=== PATIENT | male | born 1985 | race African-American/Black ===

== ENCOUNTER 2017-04-19 07:59 | Emergency (ER) | payer SELFPAY ==
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
== END 2017-04-19 10:00 | disposition home or self-care (01) ==
LOC: CED 07:59
DX: S00.93XA Contusion of unspecified part of head, initial encounter (principal); S60.211A Contusion of right wrist, initial encounter; F17.200 Nicotine dependence, unspecified, uncomplicated; Z88.8 Allergy status to other drugs, medicaments and biological substances; W22.8XXA Striking against or struck by other objects, initial encounter
CPT/HCPCS: 70450; 73090; 73110; 73130; 99284